=== PATIENT | male | born 1965 | race Caucasian/White ===

== ENCOUNTER 2017-06-14 09:20 | Emergency (ER) | payer OTHER ==
[~2017-06-14] VITALS: Ht 177.8 cm; Wt 88.5 kg
--- NOTE | ~2017-06-14 | EKG ---
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
[2017-06-14] MEDS ORDERED: IBUPROFEN 600600 M1 PO (09:39)
[2017-06-14] MEDS ORDERED: CENTRUM SILVER1 EAC2 PO (09:39)
[2017-06-14] MEDS ORDERED: VITAMIN D1000 UNI1 PO (09:39)
[2017-06-14 09:45] LABS: HEMOGLOBIN 17.4 gm/dL (14.0-18.0); RDW 15.9 % (10.5-14.5); WBC 2.8 thou/uL (4.0-11.0)
[2017-06-14 09:47] LABS: HEMATOCRIT 49.9 % (42.0-52.0); MCH 34.2 pg (26.0-34.0); MCHC 34.9 g/dL (28.0-37.0)
[2017-06-14 09:48] LABS: MANUAL DIFF YES
[2017-06-14 09:57] LABS: CALCIUM 9.5 mg/dL (8.5-10.1); CREATININE 0.9 mg/dL (0.7-1.3); POTASSIUM 3.8 mmol/L (3.5-5.1)
[2017-06-14 10:03] LABS: ALBUMIN 4.6 g/dL (3.4-5.0); DIRECT BILIRUBIN 1.1 mg/dL (<0.1-0.3); TOTAL BILIRUBIN 2.6 mg/dL (<0.1-1.0); TOTAL PROTEIN 8.5 g/dL (6.4-8.2)
[2017-06-14 10:35] LABS: ABSOLUTE NEUTROPHILS 2.3 thou/uL (1.4-8.2); LARGE PLATELETS FEW; PLATELET COUNT 46 thou/uL (150-400); PLATELET ESTIMATE DECREASED; TOTAL CELL COUNT 100
[2017-06-14] MEDS ORDERED: ATIVAN1 MG PO (11:31)
[2017-06-14 12:14] VITALS: BP 151/99
== END 2017-06-14 12:36 | disposition home or self-care (01) ==
LOC: ER 09:20
PROVIDERS: Nurse Practitioner
DX: F10.239 Alcohol dependence with withdrawal, unspecified (principal); Y90.9 Presence of alcohol in blood, level not specified

== ENCOUNTER 2018-02-02 22:58 | Inpatient (IN) | payer OTHER ==
[~2018-02-02] VITALS: Ht 177.8 cm; Wt 88.0 kg
--- NOTE | ~2018-02-02 | EKG ---
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
[~2018-02-02 22:58] MED LIST: ATIVAN1 MG PO; CENTRUM SILVER1 EAC2 PO; IBUPROFEN 600600 M1 PO; VITAMIN D1000 UNI1 PO
[2018-02-02 23:05] VITALS: BP 174/108
[2018-02-02] MEDS ORDERED: AMITRIPTYLINE H25 M2 PO (23:09)
[2018-02-02] MEDS ORDERED: [UNRECOGNIZED DRUG - OTHER] (23:10)
[2018-02-02 23:35] LABS: WBC 3.4 thou/uL (4.0-11.0)
[2018-02-02 23:37] LABS: HEMATOCRIT 50.8 % (42.0-52.0); HEMOGLOBIN 17.5 gm/dL (14.0-18.0); MCH 32.1 pg (26.0-34.0); MCHC 34.4 g/dL (28.0-37.0); MCV 93.2 fL (80.0-100.0); PLATELET COUNT 38 thou/uL (150-400); RBC 5.45 mil/uL (4.50-6.00); RDW 14.5 % (10.5-14.5)
[2018-02-02 23:42] LABS: ANION GAP 15 mmol/L (7-16); BUN 5 mg/dL (7-18); CALCIUM 8.6 mg/dL (8.5-10.1); CHLORIDE 104 mmol/L (98-107); CO2 22 mmol/L (21-32); GLUCOSE 190 mg/dL (74-106); POTASSIUM 3.3 mmol/L (3.5-5.1); SODIUM 141 mmol/L (136-145)
[2018-02-02 23:50] LABS: ALBUMIN 4.4 g/dL (3.4-5.0); LIPASE 380 U/L (73-393); SGOT 84 U/L (15-37); SGPT 47 U/L (30-65); TOTAL BILIRUBIN 0.7 mg/dL (<0.1-1.0); TOTAL PROTEIN 8.4 g/dL (6.4-8.2); TROPONIN-I < 0.04 ng/mL (<0.06)
[2018-02-02 23:55] LABS: ABSOLUTE NEUTROPHILS 1.7 thou/uL (1.4-8.2); ATYPICAL LYMPHS 2 %
[2018-02-03 04:15] VITALS: BP 160/102
[2018-02-03] MEDS ORDERED: ALLOPURINOL 10100 M1 (04:44)
[2018-02-03] MEDS ORDERED: NORVASC2.5 MG PO (04:45)
[2018-02-03 06:33] LABS: CHOLESTEROL 133 mg/dL (<200); HDL CHOLESTEROL 41 mg/dL (>40); LDL CHOLESTEROL 80 mg/dL (<100); TC:HDL 3.2 Ratio (Not establshd); TRIGLYCERIDE 64 mg/dL (<150); VLDL 13 mg/dL (<40)
[2018-02-03 06:34] LABS: SERUM ASSESSMENT Clear
[2018-02-03 11:30] VITALS: BP 160/102
[2018-02-03 16:07] VITALS: BP 156/87
[2018-02-03 20:00] VITALS: BP 137/82; BP 153/92
[2018-02-03 21:10] LABS: GLYCOHEMOGLOBIN (HGB A1C) 5.2 % (4.8-5.6)
[2018-02-04 04:30] VITALS: BP 152/92
[2018-02-04 07:05] LABS: HEMOGLOBIN 16.2 gm/dL (14.0-18.0); MCH 32.3 pg (26.0-34.0); WBC 3.1 thou/uL (4.0-11.0)
[2018-02-04 07:09] LABS: HEMATOCRIT 46.2 % (42.0-52.0); MCV 92.2 fL (80.0-100.0); PLATELET COUNT 29 thou/uL (150-400); RBC 5.01 mil/uL (4.50-6.00); RDW 14.5 % (10.5-14.5)
[2018-02-04 07:22] LABS: ALBUMIN 4.2 g/dL (3.4-5.0); CALCIUM 8.9 mg/dL (8.5-10.1); CREATININE 0.8 mg/dL (0.7-1.3); MAGNESIUM 1.5 mg/dL (1.8-2.4); POTASSIUM 3.2 mmol/L (3.5-5.1); TOTAL BILIRUBIN 1.6 mg/dL (<0.1-1.0); TOTAL PROTEIN 7.7 g/dL (6.4-8.2)
[2018-02-04 07:34] VITALS: BP 151/96
[2018-02-04 08:30] VITALS: BP 151/96
[2018-02-04] MEDS ORDERED: VITAMIN B-1100 M2 PO (10:00)
[2018-02-04 11:23] VITALS: BP 151/96
[2018-02-04 13:12] VITALS: BP 151/96
== END 2018-02-04 12:25 | disposition home or self-care (01) | DRG 313 ==
LOC: ER 22:58 → EROBS 02-03 03:06 → 4E 02-03 04:17
PROVIDERS: Emergency Medicine; Internal Medicine Geriatric Medicine; Nurse Practitioner Acute Care
DX: R07.9 Chest pain, unspecified (principal); F10.10 Alcohol abuse, uncomplicated; R09.02 Hypoxemia; E87.6 Hypokalemia; R73.9 Hyperglycemia, unspecified; I10 Essential (primary) hypertension; M10.9 Gout, unspecified; Z79.899 Other long term (current) drug therapy; Z80.0 Family history of malignant neoplasm of digestive organs
CPT/HCPCS: 10183

== ENCOUNTER 2019-03-06 21:14 | Emergency (ER) | payer OTHER ==
[~2019-03-06] VITALS: Ht 175.3 cm; Wt 93.0 kg
[~2019-03-06 21:14] MED LIST changes: +ALLOPURINOL 10100 M1; +AMITRIPTYLINE H25 M2 PO; +NORVASC2.5 MG PO; +VITAMIN B-1100 M2 PO; +[UNRECOGNIZED DRUG - OTHER]
[2019-03-07 01:02] LABS: ABSOLUTE NEUTROPHILS 4.2 thou/uL (1.4-8.2); BASOPHILS 0.4 % (0.0-2.0); EOSINOPHILS 0.1 % (0.0-3.0); HEMATOCRIT 45.4 % (42.0-52.0); HEMOGLOBIN 15.7 gm/dL (14.0-18.0); LYMPHOCYTES 21.2 % (24.0-44.0); MCH 30.8 pg (26.0-34.0); MCHC 34.5 g/dL (28.0-37.0); MCV 89.1 fL (80.0-100.0); MONOCYTES 5.8 % (1.0-8.0); PLATELET COUNT 85 thou/uL (150-400); POLYS 72.5 % (36.0-66.0); RDW 14.6 % (10.5-14.5); WBC 5.8 thou/uL (4.0-11.0)
[2019-03-07 01:06] LABS: CALCIUM 8.4 mg/dL (8.5-10.1); CREATININE 0.9 mg/dL (0.7-1.3); POTASSIUM 4.1 mmol/L (3.5-5.1)
[2019-03-07 01:12] LABS: ALBUMIN 4.1 g/dL (3.4-5.0); DIRECT BILIRUBIN 0.1 mg/dL (<0.1-0.3); MAGNESIUM 1.6 mg/dL (1.8-2.4); TOTAL BILIRUBIN 1.2 mg/dL (<0.1-1.0); TOTAL PROTEIN 7.8 g/dL (6.4-8.2)
[2019-03-07 06:13] VITALS: BP 149/87
== END 2019-03-07 06:14 | disposition home or self-care (01) ==
LOC: ER 21:14
PROVIDERS: Emergency Medicine
DX: F41.9 Anxiety disorder, unspecified (principal); F10.20 Alcohol dependence, uncomplicated; I10 Essential (primary) hypertension; M10.9 Gout, unspecified